=== PATIENT | male | born 1945 | race Caucasian/White ===

== ENCOUNTER 2020-12-16 18:42 | Emergency (ER) | payer MEDICARE ==
[~2020-12-16 18:42] MED LIST: ASCORBIC ACID500 MG PO; ASPIRIN EC81 MG PO; BACLOFEN 10MG T10 MG PO; CERTAGEN1 EACH PO; FLOMAX0.4 MG PO; FLONASE ALLER15.8 ML; LEVAQUIN750 MG PO; LISINOPRIL40 MG PO; METOPROLOL SUCC25 MG PO; NEURONTIN600 MG PO; NITROQUIK SL0.4 MG SL; NORCO 5-325 TA1 EACH PO; PROTONIX 40MG T40 MG PO; SYMBICORT 80-10.2 GM INH; VENTOLIN (2.5 MG/3 M NEB; VITAMIN B-650 MG PO; VITAMIN E400 UNI3 PO
[2020-12-16] MEDS ORDERED: NAPROXEN250 MG PO (21:09)
[2021-02-01] MEDS ORDERED: CYCLOBENZAPRINE10 MG PO (16:44)
[2021-02-01] MEDS ORDERED: MYRBETRIQ50 MG PO (16:45)
[2021-02-01] MEDS ORDERED: ELMIRON100 MG PO (16:45)
[2021-02-01] MEDS ORDERED: PROAIR HFA8.5 GM INH (16:45)
[2021-02-01] MEDS ORDERED: ATORVASTATIN CA20 MG PO (16:46)
[2021-02-01] MEDS ORDERED: VICODIN 10/3251 EACH PO (16:47)
[2021-02-02] MEDS ORDERED: VITAMIN D350 MC3 PO (10:52)
[2021-02-02] MEDS ORDERED: VITAMIN E180 MG PO (10:52)
[2021-02-02] MEDS ORDERED: VITAMIN B122500 MC1 PO (10:53)
[2021-02-02] MEDS ORDERED: VITAMIN B6100 MG/2.5 PO (10:53)
== END 2020-12-16 21:40 | disposition home or self-care (01) ==
LOC: FER 18:42
DX: G89.29 Other chronic pain (principal); M25.561 Pain in right knee; M17.11 Unilateral primary osteoarthritis, right knee; Z79.82 Long term (current) use of aspirin; Z79.899 Other long term (current) drug therapy
CPT/HCPCS: 73564

== ENCOUNTER 2021-03-02 06:20 | Day surgery (SDC) | payer MEDICARE, OTHER ==
[~2021-03-02] VITALS: Ht 170 cm; Wt 101.0 kg
[~2021-03-02 06:20] MED LIST changes: +ATORVASTATIN CA20 MG PO; +CYCLOBENZAPRINE10 MG PO; +ELMIRON100 MG PO; +MYRBETRIQ50 MG PO; +NAPROXEN250 MG PO; +PROAIR HFA8.5 GM INH; +VICODIN 10/3251 EACH PO; +VITAMIN B122500 MC1 PO; +VITAMIN B6100 MG/2.5 PO; +VITAMIN D350 MC3 PO; +VITAMIN E180 MG PO
[2021-03-02] MEDS ORDERED: PERCOCET 5-3251 EACH PO ×2 (06:49→09:58)
[2021-03-02 21:29] LABS: HCT 36.5 % (42.0-52.0); HGB 12.4 g/dl (13.2-18.0); MCH 31.4 pg (25.0-31.0); MCV 92.4 fL (78.0-100.0); RBC 3.95 M/uL (4.70-6.00); RDW 14.5 % (11.5-14.0); WBC 11.7 K/uL (4.0-10.5)
[2021-03-02 21:46] LABS: ALBUMIN 3.2 g/dL (3.4-5.0); BILIRUBIN - TOTAL 0.6 mg/dL (0.2-1.0); BUN/CREAT RATIO (CALC) 16.2 RATIO; CREATININE 1.17 mg/dL (0.67-1.17); GLOBULIN (CALCULATION) 2.7 g/dL; POTASSIUM 4.4 mmol/L (3.5-5.1); TOTAL PROTEIN 5.9 g/dL (6.4-8.2)
[2021-03-03 05:02] LABS: BASOPHIL 0.5 % (0-2); EOSINOPHIL 2.5 % (0-7); HCT 36.3 % (42.0-52.0); HGB 12.4 g/dl (13.2-18.0); LYMPHOCYTE 19.2 % (15-48); MCH 31.8 pg (25.0-31.0); MCHC 34.2 g/dL (32.0-36.0); MCV 93.1 fL (78.0-100.0); MONOCYTE 12.2 % (0-12); MPV 10.1 fL (6.0-9.5); NEUTROPHIL 65.1 % (41-80); NRBC 0; PLT 155 K/uL (150-400); RDW 14.4 % (11.5-14.0); WBC 10.7 K/uL (4.0-10.5)
[2021-03-03 05:17] LABS: CREATININE 1.13 mg/dL (0.67-1.17); POTASSIUM 4.2 mmol/L (3.5-5.1)
[2021-03-03 14:39] LABS: BILIRUBIN NEGATIVE (NEGATIVE); BLOOD NEGATIVE Ery/uL (NEGATIVE); CLARITY CLEAR (CLEAR); COLOR YELLOW (YELLOW); GLUCOSE (U) 1+ mg/dL (NORMAL); LEUKOCYTES NEGATIVE Leu/uL (NEGATIVE); NITRITE NEGATIVE (NEGATIVE); PROTEIN NEGATIVE (NEGATIVE); UROBILINOGEN 0.2 mg/dL (0.2-1.0)
[2021-03-03 14:47] LABS: URINARY RBC RARE
[2021-03-04 05:48] LABS: BASOPHIL 0.5 % (0-2); EOSINOPHIL 4.7 % (0-7); HCT 34.6 % (42.0-52.0); HGB 11.7 g/dl (13.2-18.0); LYMPHOCYTE 22.3 % (15-48); MCH 31.5 pg (25.0-31.0); MCHC 33.8 g/dL (32.0-36.0); MCV 93.3 fL (78.0-100.0); MONOCYTE 10.8 % (0-12); MPV 10.3 fL (6.0-9.5); NEUTROPHIL 61.2 % (41-80); NRBC 0; PLT 143 K/uL (150-400); RBC 3.71 M/uL (4.70-6.00); RDW 14.2 % (11.5-14.0); WBC 10.3 K/uL (4.0-10.5)
[2021-03-04 06:09] LABS: BUN/CREAT RATIO (CALC) 14.1 RATIO; CREATININE 0.99 mg/dL (0.67-1.17)
[2021-03-04] MEDS ORDERED: PANTOPRAZOLE SO40 MG PO (11:39)
[2021-03-04] MEDS ORDERED: BIAXIN500 MG PO (11:39)
[2021-03-04] MEDS ORDERED: LOPRESSOR25 MG PO (11:39)
[2021-03-04] MEDS ORDERED: ATARAX25 MG PO (11:39)
[2021-03-04] MEDS ORDERED: METRONIDAZOLE500 MG PO (11:39)
[2021-03-04] MEDS ORDERED: FEOSOL325 MG PO (11:39)
--- NOTE | 2021-03-04 12:47 | NUR ---
PT. REQUESTED [facility]IVER[facility] A RO[facility]ALKER. PT. SIGNED CHOICE FORM.
== END 2021-03-04 14:54 | disposition home health service (06) ==
LOC: FAS 06:20 → FTCU 21:50 → FAS 21:50 → FMS 03-03 09:48 → FAS 03-03 09:49 → FMS 03-03 09:50 → FAS 03-04 14:54 → FMS 03-04 14:54
PROVIDERS: Nurse Practitioner; Nurse Practitioner Adult Health; Orthopaedic Surgery
DX: M17.11 Unilateral primary osteoarthritis, right knee (principal); R00.0 Tachycardia, unspecified; R07.9 Chest pain, unspecified; B96.81 Helicobacter pylori [H. pylori] as the cause of diseases classified elsewhere; R50.82 Postprocedural fever; I10 Essential (primary) hypertension; E78.5 Hyperlipidemia, unspecified; E78.00 Pure hypercholesterolemia, unspecified; K21.9 Gastro-esophageal reflux disease without esophagitis; R73.9 Hyperglycemia, unspecified; Z79.82 Long term (current) use of aspirin; Z79.891 Long term (current) use of opiate analgesic; Z79.899 Other long term (current) drug therapy
CPT/HCPCS: 36415; 71045; 73560; 80048; 80053; 80061; 81001; 84484; 85025; 86850; 86900; 86901; 87339; 93005; 94010; 94640; 97110; 97162; 97166; 97530-GP; 97535; C1713; C1776; G0378; J0171; J0697; J1170; J1885; J2250; J2270; J2370; J2405; J2704; J2795; J3010; J7120

== ENCOUNTER 2021-10-10 15:40 | Inpatient (IN) | payer MEDICARE, OTHER ==
[~2021-10-10] VITALS: Ht 170.2 cm; Wt 99.7 kg
[~2021-10-10 15:40] MED LIST changes: +ATARAX25 MG PO; +BIAXIN500 MG PO; +FEOSOL325 MG PO; +LOPRESSOR25 MG PO; +METRONIDAZOLE500 MG PO; +PANTOPRAZOLE SO40 MG PO; +PERCOCET 5-3251 EACH PO
[2021-10-10 18:40] LABS: BASOPHIL 0.3 % (0-2); EOSINOPHIL 0.2 % (0-7); HGB 16.1 g/dl (13.2-18.0); LYMPHOCYTE 18.7 % (15-48); MCH 31.8 pg (25.0-31.0); MCHC 34.3 g/dL (32.0-36.0); MCV 92.9 fL (78.0-100.0); MONOCYTE 9.9 % (0-12); MPV 11.1 fL (6.0-9.5); NEUTROPHIL 70.4 % (41-80); NRBC 0; PLT 252 K/uL (150-400); RBC 5.06 M/uL (4.70-6.00); RDW 13.2 % (11.5-14.0); WBC 12.9 K/uL (4.0-10.5)
[2021-10-10 18:48] LABS: BILIRUBIN NEGATIVE (NEGATIVE); BLOOD NEGATIVE Ery/uL (NEGATIVE); CLARITY CLEAR (CLEAR); COLOR YELLOW (YELLOW); GLUCOSE (U) 3+ mg/dL (NORMAL); LEUKOCYTES NEGATIVE Leu/uL (NEGATIVE); NITRITE NEGATIVE (NEGATIVE); PROTEIN NEGATIVE (NEGATIVE); SPECIFIC GRAVITY <=1.005 (1.001-1.030); UROBILINOGEN 0.2 mg/dL (0.2-1.0); pH 5.5 (5.0-9.0)
[2021-10-10 19:02] LABS: BUN/CREAT RATIO (CALC) 24.9 RATIO; CREATININE 2.53 mg/dL (0.67-1.17)
[2021-10-10 19:44] LABS: ALBUMIN 4.3 g/dL (3.4-5.0); BILIRUBIN - TOTAL 0.9 mg/dL (0.2-1.0); GLOBULIN (CALCULATION) 4.1 g/dL; TOTAL PROTEIN 8.4 g/dL (6.4-8.2)
[2021-10-10 22:15] LABS: BUN/CREAT RATIO (CALC) 24.5 RATIO; CREATININE 2.2 mg/dL (0.67-1.17); POTASSIUM 5.6 mmol/L (3.5-5.1)
[2021-10-10 23:35] LABS: CORONAVIRUS 2019 SARS-COV-2 NEGATIVE (NEGATIVE); INFLUENZA A NAA NEGATIVE (NEGATIVE)
[2021-10-11 01:14] LABS: BUN/CREAT RATIO (CALC) 25.7 RATIO; CREATININE 2.1 mg/dL (0.67-1.17); POTASSIUM 4.8 mmol/L (3.5-5.1)
[2021-10-11 04:25] LABS: BASOPHIL 0.4 % (0-2); HCT 37.5 % (42.0-52.0); HGB 13.3 g/dl (13.2-18.0); LYMPHOCYTE 30.4 % (15-48); MCH 32.2 pg (25.0-31.0); MCHC 35.5 g/dL (32.0-36.0); MCV 90.8 fL (78.0-100.0); MONOCYTE 9.4 % (0-12); MPV 10.8 fL (6.0-9.5); NEUTROPHIL 58.4 % (41-80); NRBC 0; PLT 174 K/uL (150-400); RBC 4.13 M/uL (4.70-6.00); WBC 9.7 K/uL (4.0-10.5)
[2021-10-11 04:42] LABS: BUN/CREAT RATIO (CALC) 27.9 RATIO; CREATININE 1.83 mg/dL (0.67-1.17); POTASSIUM 4.6 mmol/L (3.5-5.1)
[2021-10-11 08:48] LABS: BUN/CREAT RATIO (CALC) 27.9 RATIO; CREATININE 1.54 mg/dL (0.67-1.17)
--- NOTE | 2021-10-11 10:06 | NUR ---
10/11/21 Mr. Sarah lives at home with his spouse. He reports to be independent in the home and community. He has a 3in1, rw, and cane which he does not use. No dc planning needs are anticipated.
[2021-10-11] MEDS ORDERED: ATARAX25 MG PO (12:34)
[2021-10-11] MEDS ORDERED: MULTI-VITAMIN1 EACH PO (12:35)
[2021-10-11] MEDS ORDERED: GABAPENTIN600 MG PO (12:36)
[2021-10-11] MEDS ORDERED: PROTONIX 40MG T40 MG PO (12:36)
[2021-10-11] MEDS ORDERED: VICODIN 10/3251 EACH PO (12:36)
--- NOTE | 2021-10-11 12:42 | NUR ---
10/11/21 A referral was made to A per patient choice. Connie Dudley requested for PT.
[2021-10-11] MEDS ORDERED: LIPITOR20 MG PO (12:44)
[2021-10-11] MEDS ORDERED: ELMIRON100 MG PO (12:45)
[2021-10-11] MEDS ORDERED: PROAIR HFA8.5 GM INH (12:45)
[2021-10-11] MEDS ORDERED: PRINIVIL20 MG PO (12:46)
[2021-10-11] MEDS ORDERED: MYRBETRIQ50 MG PO (12:51)
[2021-10-11] MEDS ORDERED: ASPIRIN EC81 MG PO (12:52)
[2021-10-11] MEDS ORDERED: FLEXERIL5 MG PO (12:52)
--- NOTE | 2021-10-11 14:35 | NUR ---
initial educatin started with patient before lunch with brief introduction to new diagnosis and basics; not present however came when lunch tray delivered; RD informed to let patient have lunch and return in afternoon; upon returning to room for continued education however patient asleep and not present. will check back this afternoon or f/u with patient/ in a.m. full assessment in [facility]
[2021-10-11 15:51] LABS: BUN/CREAT RATIO (CALC) 27.6 RATIO; CREATININE 1.45 mg/dL (0.67-1.17); MAGNESIUM 1.9 mg/dL (1.8-2.4); POTASSIUM 4.8 mmol/L (3.5-5.1)
[2021-10-11 23:32] LABS: BUN/CREAT RATIO (CALC) 28.8 RATIO; CREATININE 1.32 mg/dL (0.67-1.17); POTASSIUM 5.1 mmol/L (3.5-5.1)
[2021-10-12 05:41] LABS: BASOPHIL 0.8 % (0-2); EOSINOPHIL 6.3 % (0-7); HCT 37.8 % (42.0-52.0); HGB 12.9 g/dl (13.2-18.0); LYMPHOCYTE 32.9 % (15-48); MCHC 34.1 g/dL (32.0-36.0); MCV 90.9 fL (78.0-100.0); MPV 10.8 fL (6.0-9.5); NEUTROPHIL 51.5 % (41-80); NRBC 0; PLT 158 K/uL (150-400); RBC 4.16 M/uL (4.70-6.00); RDW 13.3 % (11.5-14.0); WBC 7.6 K/uL (4.0-10.5)
[2021-10-12 06:20] LABS: BUN/CREAT RATIO (CALC) 25.8 RATIO; CREATININE 1.24 mg/dL (0.67-1.17); MAGNESIUM 1.9 mg/dL (1.8-2.4); POTASSIUM 4.4 mmol/L (3.5-5.1)
[2021-10-12 10:47] LABS: IRON % SATURATION 43.8 %SAT (20-50)
--- NOTE | 2021-10-12 15:14 | NUR ---
CARDIOLOGY APPOINTMENT ALREADY MADE AND IN DISCHARGE INSTRUCTIONS. August AT [address] RAMIREZ.
[2021-10-13 05:53] LABS: BASOPHIL 0.6 % (0-2); EOSINOPHIL 7.1 % (0-7); HCT 36.6 % (42.0-52.0); HGB 12.9 g/dl (13.2-18.0); LYMPHOCYTE 34.8 % (15-48); MCH 31.9 pg (25.0-31.0); MCHC 35.2 g/dL (32.0-36.0); MCV 90.4 fL (78.0-100.0); MONOCYTE 7.1 % (0-12); MPV 10.8 fL (6.0-9.5); NEUTROPHIL 49.9 % (41-80); NRBC 0; PLT 159 K/uL (150-400); RBC 4.05 M/uL (4.70-6.00); RDW 13.2 % (11.5-14.0); WBC 7.7 K/uL (4.0-10.5)
[2021-10-13 06:30] LABS: BUN/CREAT RATIO (CALC) 20.4 RATIO; CREATININE 1.03 mg/dL (0.67-1.17); POTASSIUM 3.9 mmol/L (3.5-5.1)
--- NOTE | 2021-10-13 16:47 | NUR ---
10/13/21 [facility] was informed of discharge.
[2021-10-13] MEDS ORDERED: LOPRESSOR50 MG PO (17:28)
[2021-10-13] MEDS ORDERED: METFORMIN HCL500 MG PO (17:28)
[2021-10-13] MEDS ORDERED: GLUCOTROL XL5 MG PO (17:28)
== END 2021-10-13 19:13 | disposition home health service (06) | DRG 637 ==
LOC: FER 15:40 → FICU 22:34
PROVIDERS: Internal Medicine; Nurse Practitioner Acute Care; Nurse Practitioner Family; ADMIT Family Medicine
PROC: 02HV33Z Insertion of Infusion Device into Superior Vena Cava, Percutaneous Approach (ICD-10-PCS; principal; 2021-10-10)
PROC: B24BZZ4 Ultrasonography of Heart with Aorta, Transesophageal (ICD-10-PCS; 2021-10-11)
PROC: BD11ZZZ Fluoroscopy of Esophagus (ICD-10-PCS; 2021-10-13)
DX: E11.00 Type 2 diabetes mellitus with hyperosmolarity without nonketotic hyperglycemic-hyperosmolar coma (NKHHC) (principal); G93.41 Metabolic encephalopathy; R65.11 Systemic inflammatory response syndrome (SIRS) of non-infectious origin with acute organ dysfunction; N17.9 Acute kidney failure, unspecified; Z20.822 Contact with and (suspected) exposure to COVID-19; E87.5 Hyperkalemia; E66.9 Obesity, unspecified; R13.10 Dysphagia, unspecified; Z66 Do not resuscitate; I35.0 Nonrheumatic aortic (valve) stenosis; E86.0 Dehydration; G62.9 Polyneuropathy, unspecified; N40.1 Benign prostatic hyperplasia with lower urinary tract symptoms; N39.498 Other specified urinary incontinence; R35.0 Frequency of micturition; R01.1 Cardiac murmur, unspecified; R07.9 Chest pain, unspecified; Z68.33 Body mass index [BMI] 33.0-33.9, adult; I12.9 Hypertensive chronic kidney disease with stage 1 through stage 4 chronic kidney disease, or unspecified chronic kidney disease; E11.22 Type 2 diabetes mellitus with diabetic chronic kidney disease; N18.9 Chronic kidney disease, unspecified; E78.5 Hyperlipidemia, unspecified; I25.10 Atherosclerotic heart disease of native coronary artery without angina pectoris; N40.0 Benign prostatic hyperplasia without lower urinary tract symptoms; Z96.651 Presence of right artificial knee joint; Z98.42 Cataract extraction status, left eye; Z90.79 Acquired absence of other genital organ(s); Z79.82 Long term (current) use of aspirin; Z79.899 Other long term (current) drug therapy
CPT/HCPCS: 36415; 36600; 70450; 71045; 71250; 74220; 80048; 81003; 82009; 82040; 82247; 82746; 82803; 82962; 83036; 83525; 83527; 83540; 83550; 83690; 83735; 83880; 84075; 84155; 84443; 84450; 84460; 84484; 84681; 85025; 87040; 93005; 94010; 96372; 96374; 96375; 96376; 97161; 97166; 97530-GP; 97535; C9113; J1650; J1815; J2543; J3475; J3480; J7030; U0002